=== PATIENT | female | born 1990 | race Caucasian/White ===

== ENCOUNTER 2020-10-06 09:09 | Inpatient (IN) | payer OTHER ==
[~2020-10-06] VITALS: Ht 154 cm; Wt 85.3 kg
[2020-10-06 09:29] VITALS: BP 123/82
[2020-10-06] MEDS ORDERED: RINGERS SOLUTION,LACTATED 1,000 ML IV ONE (09:57)
[2020-10-06] MEDS ORDERED: METOCLOPRAMIDE HCL 5 MG/ML 2 ML VIAL IVP PRN (10:00)
[2020-10-06] MEDS ORDERED: METHYLERGONOVINE MALEATE 0.2 MG/ML VIAL IM PRN (10:00)
[2020-10-06] MEDS ORDERED: RINGERS SOLUTION,LACTATED 1,000 ML IV PRN (10:00)
[2020-10-06] MEDS ORDERED: CITRIC ACID/SODIUM CITRATE 30 ML SOLUTION UDCUP PO PRN (10:00)
[2020-10-06] MEDS ORDERED: LIDOCAINE/PF 1% 30 ML VIAL SQ PRN (10:00)
[2020-10-06] MEDS ORDERED: MISOPROSTOL 25 MCG TABLET VG ONE (10:00)
[2020-10-06] MEDS ORDERED: FentaNYL CITRATE PF 100 MCG/2 ML VIAL IVP PRN (10:00)
[2020-10-06] MEDS ORDERED: OXYTOCIN 30 UNITS/LACT RINGERS 500 ML IV ONE (10:00)
[2020-10-06] MEDS ORDERED: PREN-217 PO (10:15)
[2020-10-06 10:32] LABS: COVID AG,FIA SOURCE NASOPHARYNGEAL
[2020-10-06 10:42] LABS: BASOPHILS % (AUTO) 0.5 % (0.0-2.0); EOSINOPHILS % (AUTO) 1.5 % (1.0-6.0); HEMATOCRIT 36.5 % (36-46); HEMOGLOBIN 12.1 g/dL (12.0-16.0); LYMPHOCYTES # (AUTO) 1.4 K/uL (1.0-4.8); LYMPHOCYTES % (AUTO) 17.9 % (22.0-44.0); MEAN CORPUSCULAR HEMOGLOBIN 28.8 pg (26.0-34.0); MEAN CORPUSCULAR HGB CONC 33.3 G/dL (31.0-37.0); MEAN CORPUSCULAR VOLUME 87 fL (80-100); MONOCYTES # (AUTO) 0.5 K/uL (0.1-1.0); MONOCYTES % (AUTO) 6.6 % (2.0-9.0); NEUTROPHILS # (AUTO) 5.9 K/uL (1.8-7.7); NEUTROPHILS % (AUTO) 73.5 % (40.0-70.0); PLATELET COUNT (AUTO)-OB 200 K/uL (150-450); RED BLOOD CELL COUNT(AUTO) 4.22 MIL/uL (4.00-5.20); RED CELL DISTRIBUTION WIDTH 14.6 % (11.5-14.5)
[2020-10-06 10:50] LABS: ANION GAP 11 mmol/L (8-16); CALCIUM, TOTAL 8.7 mg/dL (8.8-10.5); CARBON DIOXIDE 21 mmol/L (22-29); CHLORIDE 106 mmol/L (98-107); CREATININE 0.51 mg/dL (0.60-1.30); GLOMERULAR FILTR. RATE CALC > 60 mL/min (>60); GLUCOSE,RANDOM 131 mg/dL (70-110); POTASSIUM 3.8 mmol/L (3.5-5.1); SODIUM SERUM 138 mmol/L (136-145); UREA NITROGEN, BLOOD 8 mg/dL (7-18)
[2020-10-06 10:56] LABS: ALANINE AMINOTRANSFERASE 20 U/L (12-78); ALBUMIN 2.5 g/dL (3.4-5.0); ALKALINE PHOSPHATASE 196 U/L (46-116); ASPARTATE AMINOTRANSFERASE 18 U/L (15-37); BILIRUBIN,TOTAL 0.2 mg/dL (0.1-1.0); TOTAL PROTEIN, SERUM 5.7 g/dL (6.4-8.2); URIC ACID 5.5 mg/dL (2.6-7.2)
[2020-10-06] MEDS: MISOPROSTOL 50 MCG TABLET PO SCH ×3 (14:12→22:17)
[2020-10-06] MEDS: RINGERS SOLUTION,LACTATED 1,000 ML IV SCH (17:15)
[2020-10-06] MEDS: OXYGEN THERAPY IH SCH (20:00)
[2020-10-07] MEDS: RINGERS SOLUTION,LACTATED 1,000 ML IV SCH ×4 (00:55→23:58)
[2020-10-07] MEDS: MISOPROSTOL 50 MCG TABLET PO SCH ×2 (02:18→06:20)
[2020-10-07] MEDS: OXYGEN THERAPY IH SCH ×2 (08:00→20:00)
[2020-10-07] MEDS ORDERED: OXYTOCIN 30 UNITS/LACT RINGERS 500 ML IV PRN (10:00)
[2020-10-07] MEDS ORDERED: DINOPROSTONE 10 MG VAGINAL SUPPOSITORY VG ONE (19:00)
[2020-10-08] MEDS ORDERED: OXYTOCIN 20 UNITS/LACT RINGERS 1,000 ML IV ONE ×3 (00:30→15:45)
[2020-10-08] MEDS ORDERED: -PHARMACY NOTE- MISC ONE (07:00)
[2020-10-08] MEDS: RINGERS SOLUTION,LACTATED 1,000 ML IV SCH ×2 (08:04→21:29)
[2020-10-08] MEDS ORDERED: METOCLOPRAMIDE HCL 5 MG/ML 2 ML VIAL IVP ONE (11:15)
[2020-10-08] MEDS ORDERED: ETHYL ALCOHOL 62% ANTISEPTIC NASAL INHALANT 0.6 ML AMPUL NASAL ONE (11:30)
[2020-10-08] MEDS ORDERED: ETHYL ALCOHOL 62% ANTISEPTIC NASAL INHALANT 0.6 ML AMPUL NASAL SCH (11:30)
[2020-10-08] MEDS ORDERED: ACETAMINOPHEN 1000 MG/ISO-OSM 100 ML IV ONE (12:50)
[2020-10-08] MEDS ORDERED: FentaNYL CITRATE PF 100 MCG/2 ML VIAL ONE (12:50)
[2020-10-08] MEDS ORDERED: MORPHINE SULFATE/PF 0.5 MG/ML 10 ML AMP ONE (12:50)
[2020-10-08] MEDS ORDERED: BUPIVACAINE HCL/DEX-WATER/PF 0.75% 2 ML AMP ITH ONE (12:50)
[2020-10-08] MEDS ORDERED: RINGERS SOLUTION,LACTATED 1,000 ML IV ONE ×2 (13:00)
[2020-10-08] MEDS ORDERED: DEXAMETHASONE SOD PHOS 4 MG/ML VIAL IVP PRN (14:15)
[2020-10-08] MEDS ORDERED: ONDANSETRON HCL 4 MG/2 ML VIAL IVP PRN ×2 (14:15→14:30)
[2020-10-08] MEDS ORDERED: DiphenhydrAMINE HCL 50 MG/ML VIAL IVP PRN ×2 (14:15→14:30)
[2020-10-08] MEDS ORDERED: NALBUPHINE HCL 10 MG/ML VIAL IVP PRN ×3 (14:15→14:30)
[2020-10-08] MEDS ORDERED: NALOXONE HCL 0.4 MG/ML VIAL IVP PRN (14:30)
[2020-10-08] MEDS ORDERED: MORPHINE SULFATE 10 MG/ML SYRINGE IVP PRN (14:30)
[2020-10-08] MEDS ORDERED: FentaNYL CITRATE PF 100 MCG/2 ML VIAL IVP PRN (14:30)
[2020-10-08] MEDS ORDERED: GUM MASTIC/STORAX/MSAL/ALCOHOL LIQUID 0.67 ML VIAL TP ONE (14:39)
[2020-10-08] MEDS ORDERED: LANOLIN 7 GM OINTMENT TP PRN (15:00)
[2020-10-08] MEDS ORDERED: OXYGEN THERAPY IH SCH ×3 (20:00)
[2020-10-08] MEDS: ACETAMINOPHEN 1000 MG/ISO-OSM 100 ML IV SCH (22:23)
[2020-10-09] MEDS: ACETAMINOPHEN 1000 MG/ISO-OSM 100 ML IV SCH (04:54)
[2020-10-09 06:02] LABS: BASOPHILS % (AUTO) 0.4 % (0.0-2.0); EOSINOPHILS % (AUTO) 0.5 % (1.0-6.0); HEMOGLOBIN 11.3 g/dL (12.0-16.0); LYMPHOCYTES # (AUTO) 1.3 K/uL (1.0-4.8); LYMPHOCYTES % (AUTO) 13.3 % (22.0-44.0); MEAN CORPUSCULAR HEMOGLOBIN 29.7 pg (26.0-34.0); MEAN CORPUSCULAR HGB CONC 34.3 G/dL (31.0-37.0); MEAN CORPUSCULAR VOLUME 87 fL (80-100); MONOCYTES # (AUTO) 0.7 K/uL (0.1-1.0); MONOCYTES % (AUTO) 6.9 % (2.0-9.0); NEUTROPHILS # (AUTO) 7.5 K/uL (1.8-7.7); NEUTROPHILS % (AUTO) 78.9 % (40.0-70.0); PLATELET COUNT (AUTO)-OB 196 K/uL (150-450)
[2020-10-09] MEDS ORDERED: OXYTOCIN 10 UNITS/ML VIAL IM ONE (06:33)
[2020-10-09] MEDS ORDERED: 0.9% SODIUM CHLORIDE 10 ML VIAL IVP ONE (06:33)
[2020-10-09] MEDS ORDERED: EPHEDrine SULFATE 50 MG/ML VIAL IM ONE (06:33)
[2020-10-09] MEDS: RINGERS SOLUTION,LACTATED 1,000 ML IV SCH (06:38)
[2020-10-09] MEDS: MAGNESIUM HYDROXIDE SUSPENSION 30 ML UDCUP PO PRN ×2 (09:32→21:13)
[2020-10-09] MEDS ORDERED: ACETAMINOPHEN/CODEINE 300-30 MG TABLET PO PRN ×2 (14:00)
[2020-10-09] MEDS ORDERED: IBUPROFEN 800 MG TABLET PO PRN (14:00)
[2020-10-10] MEDS ORDERED: IBUP-2070 PO (12:52)
[2020-10-10] MEDS ORDERED: DOCU-275 PO (12:53)
[2020-10-10] MEDS ORDERED: PERCT PO (12:54)
== END 2020-10-10 14:30 | disposition home or self-care (01) | DRG 788 ==
LOC: OBSVTOIN 09:09 → 4S 09:09
PROVIDERS: ADMIT Obstetrics & Gynecology; ATTEND Obstetrics & Gynecology
PROC: 10D00Z1 Extraction of Products of Conception, Low, Open Approach (ICD-10-PCS; principal; 2020-10-08)
DX: O61.0 Failed medical induction of labor (principal); Z3A.39 39 weeks gestation of pregnancy; Z20.822 Contact with and (suspected) exposure to COVID-19; Z37.0 Single live birth
CPT/HCPCS: 80053; 84550; 85025; 86850; 86900; 86901; 86923; 87081; A9575; J0131; J0690; J1200; J2274; J2405; J2590; J2765; J3010; J3490; J7120